=== PATIENT | male | born 1950 | race Two or more races ===

== ENCOUNTER 2016-08-30 06:08 | Day surgery (SDC) | payer BC, OTHER ==
[2016-08-19 10:28] VITALS: BMI 30.4
[2016-08-30] MEDS: TROPICAMIDE 1% OPHTH SOLN 15 ML BOTTLE ONE ×5 (07:05→07:25)
[2016-08-30] MEDS: FLURBIPROFEN 0.03% OPHTH SOLN 2.5 ML BOTTLE ONE ×5 (07:05→07:25)
[2016-08-30] MEDS: CYCLOPENTOLATE HCL 1% OPHTH SOLN 2 ML BOTTLE ONE ×5 (07:05→07:25)
[2016-08-30] MEDS: PHENYLEPHRINE 2.5% OPHTH SOLN 15 ML BOTTLE ONE ×5 (07:05→07:25)
[2016-08-30] MEDS: GENTAMICIN SULFATE 0.3% OPHTHALMIC (EYE DROPS) 5ML BOTTLE ONE ×5 (07:05→07:25)
[2016-08-30] MEDS ORDERED: BACITRACIN/POLYMYXIN OPH OINT 3.5 GM TUBE ONE (07:10)
[2016-08-30] MEDS ORDERED: NEO/POLYMYX B SULF/DEXAMETH OPHTHALMIC OINTMENT 3.5 GM ONE (07:10)
[2016-08-30] MEDS ORDERED: TETRACAINE 0.5% OPHTH SOLN 2 ML BOTTLE ONE (07:11)
[2016-08-30] MEDS ORDERED: LIDOCAINE HCL/PF 2% SDV 5ML VIAL ONE ×2 (07:11→07:28)
[2016-08-30] MEDS ORDERED: POVIDONE-IODINE 5% OPHTHALMIC PREP 30 ML SOLUTION ONE (07:11)
[2016-08-30] MEDS ORDERED: BETAXOLOL HCL 0.25% OPHTHALMIC 10 ML DROPSBTL ONE (07:11)
[2016-08-30] MEDS ORDERED: NEO/POLYMYX B SULF/DEXAMETH OPHTHALMIC 5ML BOTTLE ONE ×2 (07:12→07:28)
[2016-08-30] MEDS ORDERED: BSS (NA/CA/MG/K) BALANCED SALT SOLUTION OPHTH SOLN 15 ML BOTTLE ONE (07:12)
[2016-08-30] MEDS ORDERED: CARBACHOL 0.01% INTRA-OCULAR 1.5 ML VIAL ONE (07:12)
[2016-08-30] MEDS ORDERED: BUPIVACAINE HCL/PF 0.5% (5MG/ML) 10 ML VIAL ONE (07:12)
[2016-08-30] MEDS ORDERED: MIDAZOLAM HCL 2 MG/2 ML SINGLE DOSE VIAL ONE ×2 (07:29→09:10)
[2016-08-30] MEDS ORDERED: PROPOFOL 20 ML ONE (07:29)
[2016-08-30] MEDS ORDERED: PHENYLEPHRINE 2.5% OPHTH SOLN 15 ML BOTTLE OD SCH (08:00)
[2016-08-30] MEDS ORDERED: CYCLOPENTOLATE HCL 1% OPHTH SOLN 2 ML BOTTLE OD SCH (08:00)
[2016-08-30] MEDS ORDERED: FLURBIPROFEN 0.03% OPHTH SOLN 2.5 ML BOTTLE OD SCH (08:00)
[2016-08-30] MEDS ORDERED: GENTAMICIN SULFATE 0.3% OPHTHALMIC (EYE DROPS) 5ML BOTTLE OD SCH (08:00)
[2016-08-30] MEDS ORDERED: TROPICAMIDE 1% OPHTH SOLN 15 ML BOTTLE OD SCH (08:00)
[2016-08-30] MEDS ORDERED: ACETAMINOPHEN 325 MG TABLET (FP) PO PRN ×2 (09:34→12:23)
[2016-08-30] MEDS ORDERED: ACETAMINOPHEN 325 MG TABLET (FP) ONE (09:38)
[2016-08-30 10:10] VITALS: TEMP 98
[2016-08-30 10:39] VITALS: BP 101/50; PULSE 87
[2016-08-30] MEDS ORDERED: ONDANSETRON 4 MG/2 ML VIAL IVPUSH PRN (12:23)
[2016-08-30] MEDS ORDERED: LACTATED RINGERS SOLUTION 1,000 ML IV SCH (12:30)
--- NOTE | 2016-08-31 09:58 | OP ---
DATE OF OPERATION: 08/30/2016 PREOPERATIVE DIAGNOSIS: Cataract with miotic pupil, right eye. POSTOPERATIVE DIAGNOSIS: Cataract with miotic pupil, right eye. PROCEDURE: Cataract extraction via phacoemulsification with insertion of posterior chamber lens implant and use of iris hooks. SURGEON: Daniel Angel MD ANIMAL DAMAGE CONTROL AGENT SURGEON: Trinidad Braxton MD ANESTHESIA: Regional with sedation. COMPLICATIONS: None. SPECIMENS: None. ESTIMATED BLOOD LOSS: Less than 1 mL. DESCRIPTION OF PROCEDURE: The patient was identified in the holding area. After all risks, benefits, and alternatives were explained to the patient, informed consent was obtained. The right eye was marked with a marking pen. The patient then entered the operating room on an eye stretcher. After a formal time-out was performed, a 3-cc injection of equal parts of 2% lidocaine with epinephrine and 0.5% Marcaine was given around the right eye. The right eye was then prepped and draped in the usual sterile fashion. The eyelid speculum was placed beneath the eyelids of the right eye. A 15-degree blade was then used to make a superotemporal incision followed by 5 equally spaced paracentesis incisions used for iris hooks. Iris hooks were then inserted through each of those 5 incisions to make a total of 5, and the iris was retracted to around 5.5 mm in diameter. Viscoelastic was then injected into the anterior chamber. A 2.4-mm keratome blade was then used to make an inferotemporal incision. A 360-degree continuous curvilinear capsulorrhexis was then created using bent cystotome and Utrata forceps. Balanced saline solution was used on a cannula to hydrodissect the nucleus. Phacoemulsification was then used to disassemble and remove the nucleus in its entirety. Irrigation/aspiration was then used to remove any remaining cortical material from the eye. The capsular bag was then refilled using viscoelastic. An Georgi model SN60WF with a power of 24.5 diopters, serial number [id number], was inspected and found to be defect-free and inserted into the capsular bag. All remaining viscoelastic was then irrigated and aspirated from the eye. Then, all iris hooks were removed from the eye, all 5. Intracameral injections of Miochol and Miostat were then given, and the pupil came down and was round. All wounds were hydrated with balanced saline solution and found to be watertight. The anterior chamber was deep. The eye had an adequate pressure. The lens was perfectly centered in the capsular bag, and there was a red reflex present. The eyelid speculum was then removed from the right eye. Topical antibiotic eye drops and ointment were then applied to the right eye. The right eye was then patched and shielded. The patient tolerated the procedure well and left the operating room in stable condition to follow up in the eye clinic tomorrow morning at 9:00 in the morning. DANIEL ANGEL M.D. [id number]
== END 2016-08-30 10:25 | disposition home or self-care (01) ==
LOC: FASU 06:08
PROVIDERS: ATTEND Ophthalmology
PROC: 08RJ3JZ Replacement of Right Lens with Synthetic Substitute, Percutaneous Approach (ICD-10-PCS; principal; 2016-08-30 08:33)
DX: H26.8 Other specified cataract (principal)

== ENCOUNTER 2017-08-29 06:13 | Day surgery (SDC) | payer BC, OTHER ==
[2017-08-22 10:09] VITALS: BMI 24.5
[2017-08-29] MEDS: TROPICAMIDE 1% OPHTH SOLN 15 ML BOTTLE ONE ×5 (06:40→07:00)
[2017-08-29] MEDS: GENTAMICIN SULFATE 0.3% OPHTHALMIC (EYE DROPS) 5ML BOTTLE ONE ×5 (06:40→07:00)
[2017-08-29] MEDS: CYCLOPENTOLATE HCL 1% OPHTH SOLN 2 ML BOTTLE ONE ×5 (06:40→07:00)
[2017-08-29] MEDS: KETOROLAC TROMETHAMINE 0.5% 5 ML BOTTLE OPTHALMIC ONE ×5 (06:40→07:00)
[2017-08-29] MEDS: PHENYLEPHRINE 2.5% OPHTH SOLN 15 ML BOTTLE ONE ×5 (06:40→07:00)
[2017-08-29] MEDS ORDERED: SUCCINYLCHOLINE CHLORIDE 200 MG/10 ML VIAL ONE (07:11)
[2017-08-29] MEDS ORDERED: LIDOCAINE HCL/PF 2% SDV 5ML VIAL ONE (07:11)
[2017-08-29] MEDS ORDERED: PROPOFOL 20 ML ONE (07:11)
[2017-08-29] MEDS ORDERED: MIDAZOLAM HCL 2 MG/2 ML SINGLE DOSE VIAL ONE ×2 (07:11→07:57)
[2017-08-29] MEDS ORDERED: DEXAMETHASONE SOD PHOSPHATE 4 MG/1 ML VIAL ONE (07:12)
[2017-08-29] MEDS ORDERED: ONDANSETRON 4 MG/2 ML VIAL ONE (07:12)
[2017-08-29] MEDS ORDERED: EPI-SHUGARCAINE (EPINEPHRINE 0.025% & LIDOCAINE-PF 0.75%) 4ML ONE (07:13)
[2017-08-29] MEDS ORDERED: BACITRACIN/POLYMYXIN OPH OINT 3.5 GM TUBE ONE (07:13)
[2017-08-29] MEDS ORDERED: BETAXOLOL HCL 0.25% OPHTHALMIC 10 ML DROPSBTL ONE (07:13)
[2017-08-29] MEDS ORDERED: POVIDONE-IODINE 5% OPHTHALMIC PREP 30 ML SOLUTION ONE (07:13)
[2017-08-29] MEDS ORDERED: ACETYLCHOLINE 1:100 INTRA-OCUL 20 MG/2 ML KIT ONE (07:13)
[2017-08-29] MEDS ORDERED: TETRACAINE 0.5% OPHTH SOLN 2 ML BOTTLE ONE (07:13)
[2017-08-29] MEDS ORDERED: NEO/POLYMYX B SULF/DEXAMETH OPHTHALMIC 5ML BOTTLE ONE (07:14)
[2017-08-29] MEDS ORDERED: EPINEPHrine 1:1,000 1 MG/1 ML - 30ML VIAL (INJECTION) ONE (07:22)
[2017-08-29] MEDS ORDERED: EPINEPHrine/PF 1 MG/1 ML (1:1,000) AMPULE ONE (07:25)
[2017-08-29] MEDS ORDERED: TROPICAMIDE 1% OPHTH SOLN 15 ML BOTTLE OS SCH (08:00)
[2017-08-29] MEDS ORDERED: PHENYLEPHRINE 2.5% OPHTH SOLN 15 ML BOTTLE OS SCH (08:00)
[2017-08-29] MEDS ORDERED: KETOROLAC TROMETHAMINE 0.5% 5 ML BOTTLE OPTHALMIC OS SCH (08:00)
[2017-08-29] MEDS ORDERED: CYCLOPENTOLATE HCL 1% OPHTH SOLN 2 ML BOTTLE OS SCH (08:00)
[2017-08-29] MEDS ORDERED: GENTAMICIN SULFATE 0.3% OPHTHALMIC (EYE DROPS) 5ML BOTTLE OS SCH (08:00)
[2017-08-29] MEDS ORDERED: ACETAMINOPHEN 325 MG TABLET (FP) PO PRN ×2 (09:16→09:17)
[2017-08-29 09:31] VITALS: TEMP 98
[2017-08-29 09:52] VITALS: BP 112/63; PULSE 84
--- NOTE | 2017-08-29 10:05 | OP ---
DATE OF OPERATION: 08/29/2017 PREOPERATIVE DIAGNOSIS: Cataract, left eye. POSTOPERATIVE DIAGNOSIS: Cataract, left eye, with pupillary myosis. PROCEDURE: Cataract extraction via phacoemulsification with insertion of posterior chamber lens implant using iris hooks and preservative-free epinephrine. SURGEON: Daniel Angel MD INTAKE MAN: Trinidad Braxton MD ANESTHESIA: Topical with sedation. ESTIMATED BLOOD LOSS: Less than 1 mL. COMPLICATIONS: None. SPECIMENS: None. PROCEDURE: The patient was identified in the holding area. After all risks, benefits and alternatives were explained to the patient, informed consent was obtained. The left eye was marked with a marking pen. The patient then entered the operating room on an eye stretcher. After a formal timeout was performed, topical tetracaine eyedrops were instilled on to the left eye. The left eye was then prepped and draped in the usual sterile fashion. An eyelid speculum was placed beneath the eyelids of the left eye. An inferotemporal paracentesis incision was created using a 15-degree blade. Intracameral preservative-free epinephrine and preservative-free lidocaine were injected. Then 5 equally spaced paracentesis incisions were created and 5 individual iris hooks were inserted through each paracentesis to capture and dilate the pupil to an appropriate size. Viscoelastic was injected into the anterior chamber. A 2.4-mm keratome blade was then used to make a superotemporal incision. A bent cystotome and Utrata forceps were then used to make a continuous curvilinear capsulorrhexis 360 degrees. Hydrodissection was performed using balanced saline solution on a cannula. Phacoemulsification was introduced at this time to remove the nucleus in its entirety. Irrigation/aspiration was used to remove any remaining cortical material from the eye. Capsular bag was reformed using viscoelastic. An Georgi model [id number] with a power of 22.5 diopters, serial number [id number] was inspected and found to be defect free and injected into the capsular bag. Irrigation/aspiration was used to remove any remaining Viscoat from the eye and viscoelastic. All iris hooks were removed from the eye, all 5. The anterior chamber was reformed using balanced saline solution. Intracameral Miochol and Miostat were then administered and the pupil came down and was found. All wounds were hydrated with balanced saline solution and noted to be watertight. The anterior chamber was deep. The eye had an adequate pressure. The lens was perfectly centered in the capsular bag and there was a red reflex present. Topical antibiotic eyedrops and ointment were then administered to the left eye. The eyelid speculum was removed from the left eye. The left eye was shielded. The patient tolerated the procedure well, left the operating room in stable condition to follow up in the eye clinic tomorrow morning at 9:00. DANIEL ANGEL M.D. [id number]
== END 2017-08-29 10:00 | disposition home or self-care (01) ==
LOC: FASU 06:13
PROVIDERS: ATTEND Ophthalmology
PROC: 08RK3JZ Replacement of Left Lens with Synthetic Substitute, Percutaneous Approach (ICD-10-PCS; principal; 2017-08-29 08:18)
DX: H26.9 Unspecified cataract (principal); H57.03 Miosis
CPT/HCPCS: 82962